=== PATIENT | male | born 2005 | race Caucasian/White ===

== ENCOUNTER 2025-06-13 13:23 | Emergency (ER) | payer MEDICAID ==
[~2025-06-13] VITALS: Ht 175.3 cm; Wt 75.0 kg
[~2025-06-13 13:23] MED LIST: CLIN-224 PO; NO HOME MEDS; ONDA-243 PO; ONDA8TAB9 PO; PRED15SO72 PO
--- NOTE | 2025-06-13 14:36 | Physician Documentation ---
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 Denies any urinary symptoms. He has any history of kidney stones. Denies any acute injury. States the pain is worse from sitting to standing.. Denies any red flag symptoms including incontinence numbness tingling or fevers. Patient's brother has a history of renal cell carcinoma. Mother over the phone tells me that he had kidney stones in both kidneys and bounced in and out of the hospital with pain and finally saw a specialist and had a partial nephrectomy. Day of Onset: Jun 13, 2025 Medication Reconciliation Allergies: Coded Allergies: amoxicillin (Verified Allergy, Severe, rash, 06/13/25) peanut (Verified Allergy, Unknown, 06/13/25) Scheduled Clindamycin HCL* (Clindamycin HCL*), 1 CAP PO TID Prednisolone (Prelone 15MG/5ML Solution), 30 MG PO DAILY Scheduled PRN ONDANSETRON ODT 4mg tablet (Ondansetron Odt), 1 TABLET PO Q6H PRN for nausea/vomiting ONDANSETRON ODT 4mg tablet (Ondansetron Odt), 1 TAB PO Q6H PRN PRN for nausea/vomiting Ondansetron (Zofran Odt), 4 MG PO Q6H PRN Miscellaneous Medications Home Med List (No Home Medications), (Reported) Past Medical History Past Medical History: Asthma Past Surgical History: tonsillectomy Alcohol Use: None Drug Use: none Lives with: Father Lives In: Home Occupation: child Review of Systems All Other Systems at this time: Reviewed and Negative ROS As stated above in the HPI, otherwise all systems are reviewed and negative. Physical Exam Physical Exam Vital Signs: Temperature: 99.7, Source: Temporal, Heart Rate: 104, Respiratory Rate: 17, BP: 126/74, Pulse Oximetry: 99, Weight: 75.050 Oxygen Flow Rate: 0 Physical Exam General: Alert, no apparent distress. Respiratory: Lungs clear, no respiratory distress. back: normal ROM Neurologic: Oriented x4. Psychiatric: Normal mood and affect. Skin: Normal color, warm and dry. No edema, no ecchymosis. Gastrointestinal: normal palpation, non-tender BacK: normal inspection, CVA tenderness (R), CVA tenderness (L) (Mild) Neurologic: oriented x4, memory intact Psychiatric: normal mood/affect Skin: normal color, warm/dry Progress Progress Note Patient in with low back pain and vomiting. Brother has a history of renal cell carcinoma. CT scan shows bilateral stones in the medullary the kidney but no nephrolithiasis. Normal CBC, normal chemistry, normal UA. Gave fluids, pain medication and antiemetics in the ER. Patient is improved. Given his brother's history I am recommending follow up with PCP to referral for this specialist that his brother saw in [place]. Giving a script for Zofran. Discharged home in stable condition. He is to return here if new or worsening symptoms prior to follow up. Results/Orders Results/Orders Orders - ISABELLE BENÍTEZ MD Ct Abdomen Pelvis (06/13/25 15:38) Completed Orders - ISABELLE BENÍTEZ MD Cbc/Diff (06/13/25 15:29) Ct Abdomen Pelvis (06/13/25 15:38) BMP (06/13/25 15:29) Normal Saline 1000ml (0.9% Sodium Chlori (06/13/25 15:35) Ketorolac Trometh 30mg/Ml Vial (Toradol (06/13/25 15:35) Ondansetron Inj. (Zofran 4mg/2ml Vial) (06/13/25 15:35) Medications Received in ER Medications (Trade) Dose Ordered Sig/Josee Route PRN Reason Start Time Stop Time Status Last Admin Dose Admin (Toradol inj. 30mg/ml) 30 mg ONCE ONCE IM 06/13/25 14:50 06/13/25 14:51 DC 06/13/25 15:03 30 MG (Zofran ODT tablet) 4 mg ONCE ONCE PO 06/13/25 15:00 06/13/25 15:01 DC 06/13/25 15:02 4 MG Sodium Chloride 1,000 ml @ 1,000 mls/hr ONCE ONCE IV 06/13/25 15:35 06/13/25 16:34 DC 06/13/25 15:51 1,000 MLS/HR Vital Signs 06/13/25 06/13/25 06/13/2506/13/25 13:46 14:30 15:03 15:30 Temp 99.7 98.6 Pulse 104 86 92 Resp 17 19 18 20 B/P (MAP) 126/74 124/68 (86) 132/72 (92) Pulse Ox 99 98 O2 Flow Rate 0 0 06/13/25 15:58 Resp 19 B/P (MAP) Laboratory Tests Test 06/13/25 15:39 06/13/25 15:52 Urine Specimen Description Non-specified Urine Color Yellow Urine Clarity Clear Urine pH 6.0 Urine Specific [place] 1.025 Urine Protein Negative Urine Glucose (UA) Negative Urine Ketones Trace H Urine Occult Blood Negative Urine Nitrite Negative Urine Bilirubin Negative Urine Urobilinogen 0.2 Urine Leukocyte Esterase Negative Volume Urine Centrifuged 10 ml Urine Comment White Blood Count 8.4 Red Blood Count 4.52 L Hemoglobin 14.1 Hematocrit 39.9 L Mean Corpuscular Volume 88.1 Mean Corpuscular Hemoglobin 31.2 H Mean Corpuscular Hemoglobin Concent 35.4 Red Cell Distribution Width 14.4 Platelet Count 265 Mean Platelet Volume 7.3 L Neutrophils (%) (Auto) 84.4 H Lymphocytes (%) (Auto) 2.3 L Monocytes (%) (Auto) 12.6 H Eosinophils (%) (Auto) 0.6 Basophils (%) (Auto) 0.1 Neutrophils # (Auto) 7.1 Lymphocytes # (Auto) 0.2 L Monocytes # (Auto) 1.1 H Eosinophils # (Auto) 0.1 Basophils # (Auto) 0.0 CBC Comment Sodium Level 135 Potassium Level 3.6 Chloride Level 104 Carbon Dioxide Level 23.6 L Anion Gap 7 L Blood Urea Nitrogen 8 Creatinine 0.86 Estimated GFR/1.73 m2 > 90 BUN/Creatinine Ratio 9.3 L Glucose Level 125 H Calcium Level 8.6 Albumin 4.2 Chemistry Comments Medical Decision Making Findings Family and patient requested a different provider: Dr. Ruffin is assuming care. @[id number] Differential Dx:Considerations: Include: AAA, Aortic dissection, Appendicitis, Bowel obstruction, Cholelithiasis, Cholangitis, DJD, Fracture, Hepatitis, HNP, Musculoskeletal pain, Pancreatitis, Pyelonephritis, Renal infarction, Strain, Urinary obstruction, Urolithiasis, Urinary tract infection, Other Departure Impression: Primary Impression: Low back pain Qualified Codes: M54.50 - Low back pain, unspecified Condition: Improved Discharge Instructions: Acute Back Pain, Adult Additional Instructions: Follow-up with your doctor to get a referral to the specialist in [place] that your brother was also seeing. Return here if not doing well. Referrals: NO PRIMARY CARE PROVIDER (PCP) Prescriptions ONDANSETRON ODT 4mg tablet (ONDANSETRON ODT) 4 Mg Tab.rapdis 1 TAB PO Q6H PRN PRN for nausea/vomiting for 4 Days, #20 TAB 0 Refills Prov: ISABELLE BENÍTEZ MD 06/13/25 Education Educated: Patient, Family Educated regarding: diagnosis, treatment, need for follow up Signature Scribe Signature: No scribe used Attestation: No scribe used WESLEY FUNES NP Jun 13, 2025 14:36 ISABELLE BENÍTEZ MD Jun 13, 2025 16:34
[2025-06-13] MEDS: ondansetron 4mg rapidly disintigrating tab PO ONE (15:02)
[2025-06-13] MEDS: ketorolac trometh 30MG/ML vial 30 MG/ML VIAL IM ONE (15:03)
[2025-06-13 15:30] VITALS: TEMP 98.6
[2025-06-13] MEDS: ketorolac trometh 30MG/ML vial 30 MG/ML VIAL IV ONE (15:34)
[2025-06-13] MEDS: ondansetron/PF 4mg/2ml inj IV ONE (15:36)
[2025-06-13] MEDS: normal saline 1000ml 1,000 ML IV ONE (15:51)
[2025-06-13 15:58] LABS: LEUKOCYTE ESTERASE ,URINE NEGATIVE (Neg); NITRITES, URINE NEGATIVE (Neg); OCCULT BLOOD,URINE NEGATIVE (Neg)
[2025-06-13 16:00] LABS: UA COLLECTION TYPE NON-SPECIFIED
[2025-06-13 16:02] LABS: MEAN PLATELET VOLUME 7.3 FL (7.4-10.4); RED CELL DISTRIBUTION WIDTH 14.4 % (11.5-14.5)
--- NOTE | 2025-06-13 16:10 | RADIOLOGY REPORT ---
Exam: CT CT ABDOMEN PELVIS History: bilateral severe low back pain, vomiting, fever Comparison Study: None TECHNIQUE: Multidetector CT of the abdomen and pelvis was performed from lung bases to pubic symphysi s. Imaging was performed without IV contrast. Axial, coronal, and sagittal multiplanar reformats were obtained from the axial data set by the technologist. RADIATION DOSE: DLP 540.52 mGy.cm; CTDI vol 11.18 mGy. Findings: Lungs: The lung bases are clear. Heart: No cardiomegaly or pericardial effusion. Liver: Unremarkable. Gallbladder: Unremarkable. Spleen: Unremarkable Pancreas: Unremarkable Adrenals: Unremarkable Kidneys: Bilateral medullary nephrocalcinosis. No nephroureterolithiasis. GI tract: Unremarkable : Unremarkable. Vasculature: Unremarkable Lymphadenopathy: Absent Peritoneum: No ascites Musculoskeletal: Unremarkable Soft tissues: Unremarkable Impression: 1. No acute abdominopelvic abnormalities. 2. Bilateral medullary nephrocalcinosis. No nephroureterolithiasis.
[2025-06-13 16:20] LABS: CREATININE 0.86 MG/DL (0.60-1.10); TOTAL CARBON DIOXIDE 23.6 MMOL/L (24-32); eCRCL 138 ML/MIN; eGFR > 90 ML/MIN
[2025-06-13] MEDS ORDERED: ONDA-243 PO (16:34)
[2025-06-13 16:57] VITALS: BP 127/57; PULSE 84; RESP 17; O2SAT 9
== END 2025-06-13 16:59 | disposition home or self-care (01) ==
LOC: ER 13:24
DX: M54.50 Low back pain, unspecified (principal); J45.909 Unspecified asthma, uncomplicated; Z87.442 Personal history of urinary calculi; Z88.0 Allergy status to penicillin; Z90.89 Acquired absence of other organs
CPT/HCPCS: 36415; 74176; 80048; 81003; 85025; 96360; 96372; 99285; J1885; J7030